=== PATIENT | female | born 1950 | race American Indian/Alaskan Native ===

== ENCOUNTER 2017-09-24 10:10 | Emergency (ER) | payer MEDICARE ==
[2017-09-24 14:00] LABS: Basophils % (Auto) 0.9 % (0.0-1.8); Eosinophils % (Auto) 2.4 % (0.0-4.3); Hematocrit 40.7 % (30.3-42.9); Hemoglobin 13.2 gm/dl (10.1-14.3); Mean Corpuscular HGB Conc 33 % (30-34); Mean Corpuscular Hemoglobin 30 pg (28-32); Mean Corpuscular Volume 93 fl (79-97); Platelet Count 274 K/mm3 (140-440); Red Blood Count 4.39 M/mm3 (3.65-5.03); Red Cell Distribution Width 14.1 % (13.2-15.2); White Blood Count 7.4 K/mm3 (4.5-11.0)
[2017-09-24 14:03] LABS: Alanine Aminotransferase 11 units/L (7-56); Albumin 3.7 g/dL (3.9-5); Albumin/Globulin Ratio 0.9 %; Alkaline Phosphatase 80 units/L (35-129); Anion Gap 18 mmol/L; BUN/Creatinine Ratio 32; Blood Urea Nitrogen 19 mg/dL (7-17); Calcium 9.8 mg/dL (8.4-10.2); Carbon Dioxide 26 mmol/L (22-30); Chloride 98.3 mmol/L (98-107); Glucose 78 mg/dL (65-100); Potassium 4.4 mmol/L (3.6-5.0); Sodium 138 mmol/L (137-145); Total Protein 7.7 g/dL (6.3-8.2)
[2017-09-24] MEDS ORDERED: ZOFRAN IV ONE (17:00)
[2017-09-24] MEDS ORDERED: DILAUDID IV ONE (17:00)
--- NOTE | 2017-09-24 17:06 | Emergency Department Report ---
ED General Adult HPI - General Chief complaint: Pain General Stated complaint: NECK/RT KNEE PAIN Time Seen by Provider: 09/24/17 16:52 Source: patient Mode of arrival: Wheelchair Limitations: No Limitations - History of Present Illness Initial comments: Patient is a 66 years old female living in a halfway brought by EMS today with a chief complaint of CV or neck pain however and lower back pain and right knee pain has been going on for 3 weeks, patient stated that her pain is intolerable today. She stated that she was diagnosed with degenerative disc disease but the pain is severe today. Patient denied any numbness or tingling sensation, no bowel or bladder incontinence, no focal weakness. Patient denied headache or fever. Location: neck, back, lower extremity Quality: stabbing, sharp Consistency: constant - Related Data Previous Rx's Medication Instructions Recorded Last Taken Type HYDROcodone/APAP 5-325 [[place] 1 each PO Q6HR PRN #14 tablet 09/24/17 Unknown Rx 5/325] Ondansetron [Zofran Odt] 4 mg PO Q8HR PRN #14 tab.rapdis 09/24/17 Unknown Rx Allergies Allergy/AdvReac Type Severity Reaction Status Date / Time No Known Allergies Allergy Unverified 09/24/17 10:42 ED Review of Systems ROS: Stated complaint: NECK/RT KNEE PAIN Other details as noted in HPI Comment: All other systems reviewed and negative Constitutional: denies: chills, fever ENT: denies: ear pain, throat pain, dental pain, hearing loss Respiratory: denies: cough, orthopnea, shortness of breath, SOB with exertion, SOB at rest Cardiovascular: denies: chest pain, palpitations Gastrointestinal: denies: abdominal pain, nausea, vomiting, diarrhea, constipation Musculoskeletal: back pain, joint swelling. denies: arthralgia Skin: denies: rash, lesions Neurological: denies: headache, weakness, numbness, paresthesias ED Past Medical Hx - Past Medical History Previous Medical History?: Yes Hx Diabetes: Yes Hx of Cancer: Yes Hx Arthritis: Yes Hx Asthma: Yes - Surgical History Past Surgical History?: No - Social History Smoking Status: Never Smoker Substance Use Type: None - Medications Home Medications: Home Medications Medication Instructions Recorded Confirmed Last Taken Type HYDROcodone/APAP 5-325 [[place] 1 each PO Q6HR PRN #14 tablet 09/24/17 Unknown Rx 5/325] Ondansetron [Zofran Odt] 4 mg PO Q8HR PRN #14 tab.rapdis 09/24/17 Unknown Rx ED Physical Exam - General Limitations: No Limitations General appearance: alert, in no apparent distress - Head Head exam: Present: atraumatic, normocephalic - Eye Eye exam: Present: PERRL. Absent: normal appearance - ENT ENT exam: Present: normal exam, normal orophraynx, mucous membranes moist - Neck Neck exam: Present: normal inspection, tenderness. Absent: meningismus, full ROM (decreased range of motion), lymphadenopathy, thyromegaly - Respiratory Respiratory exam: Present: normal lung sounds bilaterally. Absent: respiratory distress, wheezes, rales, rhonchi, chest wall tenderness, accessory muscle use, decreased breath sounds, prolonged expiratory - Cardiovascular Cardiovascular Exam: Present: regular rate, normal rhythm, normal heart sounds - GI/Abdominal GI/Abdominal exam: Present: soft, normal bowel sounds. Absent: distended, tenderness, guarding, rebound, rigid, organomegaly, mass, bruit, pulsatile mass , hernia - Expanded Lower Extremity Exam Right Knee exam: Present: tenderness, swelling. Absent: abrasion, laceration, ecchymosis, deformity, crepidus, dislocation - Back Exam Back exam: Present: normal inspection, tenderness, paraspinal tenderness. Absent: muscle spasm - Neurological Exam Neurological exam: Present: alert, oriented X3, CN II-XII intact - Skin Skin exam: Present: warm, intact, normal color ED Course Vital Signs 09/24/17 09/24/17 09/24/17 10:38 17:20 17:31 Temperature 98 F Pulse Rate 91 H 82 86 Respiratory 22 16 19 Rate Blood Pressure 126/66 79/56 Blood Pressure [Left] O2 Sat by Pulse 100 94 98 Oximetry 09/24/17 09/24/17 09/24/17 17:40 17:42 18:45 Temperature 98.3 F Pulse Rate 90 67 Respiratory 12 12 17 Rate Blood Pressure 139/60 Blood Pressure 139/60 [Left] O2 Sat by Pulse 98 94 96 Oximetry 09/24/17 09/24/17 09/24/17 19:00 19:15 19:30 Temperature Pulse Rate 77 76 71 Respiratory 12 15 16 Rate Blood Pressure 119/63 119/63 124/61 Blood Pressure [Left] O2 Sat by Pulse 98 97 99 Oximetry 09/24/17 09/24/17 09/24/17 19:33 19:45 20:00 Temperature Pulse Rate 78 72 74 Respiratory 19 16 14 Rate Blood Pressure 124/61 110/74 Blood Pressure 119/63 [Left] O2 Sat by Pulse 99 100 98 Oximetry 09/24/17 09/24/17 09/24/17 20:15 20:30 20:45 Temperature Pulse Rate 74 68 65 Respiratory 17 14 20 Rate Blood Pressure 110/74 98/51 104/53 Blood Pressure [Left] O2 Sat by Pulse 99 100 100 Oximetry 09/24/17 09/24/17 09/24/17 21:00 21:15 21:30 Temperature Pulse Rate 72 68 65 Respiratory 19 23 16 Rate Blood Pressure 110/51 107/56 109/57 Blood Pressure [Left] O2 Sat by Pulse 95 96 97 Oximetry 09/24/17 09/24/17 09/24/17 21:45 22:00 22:15 Temperature Pulse Rate 64 63 65 Respiratory 16 20 18 Rate Blood Pressure 96/46 105/52 104/52 Blood Pressure [Left] O2 Sat by Pulse 97 96 95 Oximetry - Reevaluation(s) Reevaluation #1: 09/24/17 20:41 Patient stated that she is feeling much better. ED Medical Decision Making - Lab Data Result diagrams: 09/24/17 13:24 09/24/17 13:24 - Radiology Data Radiology results: report reviewed CT cervical spine, CT lumbar spine, CT thoracic spine showed degenerative disc disease but no acute finding. Right knee x-ray no acute findings. Critical care attestation.: If time is entered above; I have spent that time in minutes in the direct care of this critically ill patient, excluding procedure time. ED Disposition Clinical Impression: Neck pain, Back pain, Right knee pain Disposition: - TO HOME OR SELFCARE Is pt being admited?: No Condition: Stable Instructions: Osteoarthritis (ED) Prescriptions: HYDROcodone/APAP 5-325 [[place] 5/325] 1 each PO Q6HR PRN #14 tablet PRN Reason: Pain Ondansetron [Zofran Odt] 4 mg PO Q8HR PRN #14 tab.rapdis PRN Reason: Nausea And Vomiting Referrals: PRIMARY CARE, [Primary Care Provider] - 3-5 Days
--- NOTE | 2017-09-24 19:24 | Cat Scan Report ---
FINAL REPORT EXAM: CT CERVICAL SPINE WO CON HISTORY: NECK INJURY TECHNIQUE: Standard CT cervical spine obtained at 1.25 millimeter axial increments. Coronal and sagittal reconstruction was also performed. PRIORS: None. FINDINGS: The vertebral bodies are intact. There is no evidence for acute fracture. There is no evidence for paravertebral soft tissue swelling. Alignment is maintained. Severe degenerative disc changes are present throughout the entire cervical spine. Large osteophytes, some of which are bridging, are present anteriorly from C2 through C7. Small spurs present posteriorly causing neural foraminal narrowing bilaterally at all levels. IMPRESSION: No acute abnormality of the cervical spine. Severe degenerative disc changes throughout the cervical spine.
--- NOTE | 2017-09-24 19:29 | Cat Scan Report ---
FINAL REPORT EXAM: CT LUMBAR SPINE WO CON HISTORY: back pain TECHNIQUE: Spiral high-resolution unenhanced 1.25 millimeter axial images were obtained through the lumbar spine. Sagittal and coronal plane are reconstructions were performed. PRIORS: None. FINDINGS: Counting reference: Lumbosacral junction. For the purposes of this report, L4-L5 is considered the level of the iliac crest. Bone marrow/ Fracture: No evidence for acute or chronic fracture is seen. No evidence of a lytic or blastic process in the visualized spine. Alignment: Alignment is anatomic. Disc spaces: Severe disc space narrowing at T12-L1 and L5-S1 is noted. Severe hypertrophic facet joint degenerative changes from L2 through S1 are noted bilaterally. There is bilateral neural foraminal narrowing at L4-L5 and L5-S1, worse to the left of midline than the right. Paraspinal soft tissues: The paraspinal soft tissues show no evidence for paravertebral hematoma or soft tissue mass. Sacrum and iliac wings: Visualized portions of the sacrum and iliac wings appear intact without fracture. The presacral soft tissues are normal in appearance. IMPRESSION: 1. No evidence of acute fracture. 2. Extensive degenerative changes particularly at T12-L1 and L5-S1. Significant neural foraminal narrowing is present at L4-L5 and L5-S1.
--- NOTE | 2017-09-24 19:31 | XRay Report ---
FINAL REPORT PROCEDURE: XR KNEE 3V RT TECHNIQUE: Three views of the right knee are obtained HISTORY: right knee pain COMPARISON: No prior studies are available for comparison. FINDINGS: Moderate medial compartmental narrowing is seen with moderate medial lateral osteophytes. Little joint effusion is seen. Old healed fracture of the proximal fibula is suspected. No acute fracture or dislocation is seen. IMPRESSION: Prominent osteoarthritic changes are seen with minimal joint effusion.
--- NOTE | 2017-09-24 19:33 | Cat Scan Report ---
FINAL REPORT EXAM: CT THORACIC SPINE WO CON HISTORY: back pain TECHNIQUE: Standard CT thoracic spine obtained at 1.25 millimeter axial increments. Coronal and sagittal reconstruction was also performed. PRIORS: None. FINDINGS: The vertebral bodies are intact. There is no evidence for acute fracture. There is no evidence for paravertebral soft tissue swelling. Alignment is maintained. Severe degenerative disc narrowing is present at all levels of the thoracic spine. Large osteophytes are present throughout the lower 2/3 of the thoracic spine anteriorly. Incidental gallstones in the gallbladder are noted. IMPRESSION: No acute abnormality of the thoracic spine. Severe degenerative disc changes throughout the thoracic spine with large osteophytes anteriorly.
[2017-09-24 22:51] VITALS: BP 104/52
== END 2017-09-24 23:40 | disposition home or self-care (01) ==
LOC: ED 10:10
DX: M54.2 Cervicalgia (principal); M25.561 Pain in right knee; M54.5 Low back pain; E11.9 Type 2 diabetes mellitus without complications; M19.90 Unspecified osteoarthritis, unspecified site; J45.909 Unspecified asthma, uncomplicated
CPT/HCPCS: 36415; 72125; 72128; 72131; 80053; 85025; 96374; 96375

== ENCOUNTER 2017-10-19 12:35 | Emergency (ER) | payer MEDICARE ==
[2017-10-19 23:15] LABS: Bacteria,Urine 1+ /HPF (Negative); Bilirubin,Urine NEG (Negative); Blood,Urine SM (Negative); Ketones,Urine TR mg/dL (Negative); Leukocyte Esterase,Urine NEG (Negative); Mucus,Urine FEW /HPF; Nitrite,Urine NEG (Negative); Protein,Urine <15 mg/dL mg/dL (Negative)
[2017-10-20] MEDS ORDERED: MORPHINE IM ONE (00:40)
[2017-10-20] MEDS ORDERED: ZOFRAN IM ONE (00:40)
--- NOTE | 2017-10-20 00:40 | Emergency Department Report ---
ED General Adult HPI - General Chief complaint: Extremity Injury, Lower Stated complaint: FREQUENT URINATING,HIP PAIN Time Seen by Provider: 10/20/17 00:22 Source: patient Mode of arrival: Ambulatory Limitations: No Limitations - History of Present Illness Initial comments: Patient is 67 years old female came in today with a chief complaint of urinary incontinence has been going on for a while, she stated that she cannot hold her urine and she is having trouble at the place that she live in now. Patient denied any fever no recent injury and no nausea no vomiting. Patient also complaining of generalized joint pain, she was diagnosed as arthritis and she supposed to follow-up with an orthopedic doctor that she did not make an appointment yet. No other complaint. Severity scale (0 -10): 10 - Related Data Previous Rx's Medication Instructions Recorded Last Taken Type HYDROcodone/APAP 5-325 [[place] 1 each PO Q6HR PRN #14 tablet 09/24/17 Unknown Rx 5/325] Ondansetron [Zofran Odt] 4 mg PO Q8HR PRN #14 tab.rapdis 09/24/17 Unknown Rx HYDROcodone/APAP 5-325 [[place] 1 each PO Q6HR PRN #14 tablet 10/20/17 Unknown Rx 5/325] Ondansetron [Zofran Odt] 4 mg PO Q8HR PRN #14 tab.rapdis 10/20/17 Unknown Rx Allergies Allergy/AdvReac Type Severity Reaction Status Date / Time No Known Allergies Allergy Verified 10/19/17 12:41 ED Review of Systems ROS: Stated complaint: FREQUENT URINATING,HIP PAIN Other details as noted in HPI Comment: All other systems reviewed and negative Constitutional: denies: chills, fever Respiratory: denies: cough, orthopnea, shortness of breath Cardiovascular: denies: chest pain, palpitations Gastrointestinal: denies: abdominal pain, nausea, vomiting, diarrhea, constipation Genitourinary: urgency, frequency. denies: dysuria, hematuria, discharge Musculoskeletal: denies: back pain, arthralgia ED Past Medical Hx - Past Medical History Hx Hypertension: Yes - Social History Smoking Status: Current Every Day Smoker Substance Use Type: None - Medications Home Medications: Home Medications Medication Instructions Recorded Confirmed Last Taken Type HYDROcodone/APAP 5-325 [[place] 1 each PO Q6HR PRN #14 tablet 09/24/17 Unknown Rx 5/325] Ondansetron [Zofran Odt] 4 mg PO Q8HR PRN #14 tab.rapdis 09/24/17 Unknown Rx HYDROcodone/APAP 5-325 [[place] 1 each PO Q6HR PRN #14 tablet 10/20/17 Unknown Rx 5/325] Ondansetron [Zofran Odt] 4 mg PO Q8HR PRN #14 tab.rapdis 10/20/17 Unknown Rx ED Physical Exam - General Limitations: No Limitations General appearance: alert, in no apparent distress - Head Head exam: Present: atraumatic, normocephalic, normal inspection - Eye Eye exam: Present: normal appearance - ENT ENT exam: Present: normal exam - Neck Neck exam: Present: normal inspection - Respiratory Respiratory exam: Present: normal lung sounds bilaterally - Cardiovascular Cardiovascular Exam: Present: regular rate - GI/Abdominal GI/Abdominal exam: Present: soft, normal bowel sounds. Absent: distended, tenderness, guarding, rebound, rigid, organomegaly, mass, bruit, pulsatile mass - Extremities Exam Extremities exam: Present: normal inspection, full ROM, normal capillary refill - Back Exam Back exam: Present: normal inspection. Absent: CVA tenderness (R), CVA tenderness (L) - Neurological Exam Neurological exam: Present: alert, oriented X3, CN II-XII intact, normal gait - Skin Skin exam: Present: warm, intact, normal color ED Course Vital Signs 10/19/17 10/19/17 10/19/17 12:42 20:53 22:00 Temperature 98.3 F 98.5 F 98.3 F Pulse Rate 102 H 87 76 Respiratory 18 18 18 Rate Blood Pressure 123/72 Blood Pressure 119/58 134/67 [Right] O2 Sat by Pulse 96 96 97 Oximetry 10/19/17 10/19/17 10/19/17 22:02 22:31 23:01 Temperature Pulse Rate Respiratory Rate Blood Pressure 134/67 134/67 Blood Pressure [Right] O2 Sat by Pulse 99 98 96 Oximetry 10/19/17 10/20/17 10/20/17 23:31 00:01 00:25 Temperature Pulse Rate Respiratory 16 Rate Blood Pressure 134/67 134/67 Blood Pressure [Right] O2 Sat by Pulse 95 94 97 Oximetry 10/20/17 00:31 Temperature Pulse Rate Respiratory Rate Blood Pressure 134/67 Blood Pressure [Right] O2 Sat by Pulse 97 Oximetry Critical care attestation.: If time is entered above; I have spent that time in minutes in the direct care of this critically ill patient, excluding procedure time. ED Disposition Clinical Impression: Urinary incontinence, Arthritis Disposition: DC-01 TO HOME OR SELFCARE Is pt being admited?: No Condition: Stable Instructions: Urinary Incontinence (ED), Osteoarthritis (ED), Paz Catheter Placement and Care (ED) Additional Instructions: Please follow up with a urologist for the Paz catheter care and further management. Prescriptions: HYDROcodone/APAP 5-325 [[place] 5/325] 1 each PO Q6HR PRN #14 tablet PRN Reason: Pain Ondansetron [Zofran Odt] 4 mg PO Q8HR PRN #14 tab.rapdis PRN Reason: Nausea And Vomiting Referrals: PRIMARY CARE, [Primary Care Provider] - 3-5 Days
[2017-10-20 09:01] VITALS: BP 106/57
== END 2017-10-20 10:46 | disposition home or self-care (01) ==
LOC: ED 12:35
DX: R32 Unspecified urinary incontinence (principal); M19.90 Unspecified osteoarthritis, unspecified site; F17.200 Nicotine dependence, unspecified, uncomplicated; I10 Essential (primary) hypertension
CPT/HCPCS: 51702; 81001; 96372; 99284; J2270; J2405

== ENCOUNTER 2017-10-30 20:03 | Emergency (ER) | payer MEDICARE ==
[2017-10-30 20:55] LABS: Eosinophils % (Auto) 6.2 % (0.0-4.3); Hematocrit 41.4 % (30.3-42.9); Hemoglobin 14.1 gm/dl (10.1-14.3); Mean Corpuscular HGB Conc 34 % (30-34); Mean Corpuscular Hemoglobin 31 pg (28-32); Mean Corpuscular Volume 91 fl (79-97); Platelet Count 331 K/mm3 (140-440); Red Blood Count 4.58 M/mm3 (3.65-5.03); Red Cell Distribution Width 13.4 % (13.2-15.2); White Blood Count 8.1 K/mm3 (4.5-11.0)
[2017-10-30 21:12] LABS: Alanine Aminotransferase 7 units/L (7-56); Albumin 3.9 g/dL (3.9-5); Albumin/Globulin Ratio 1.1 %; Alkaline Phosphatase 80 units/L (35-129); Anion Gap 20 mmol/L; BUN/Creatinine Ratio 30; Blood Urea Nitrogen 18 mg/dL (7-17); Carbon Dioxide 24 mmol/L (22-30); Chloride 99.1 mmol/L (98-107); Glucose 134 mg/dL (65-100); Lipase 13 units/L (13-60); Sodium 139 mmol/L (137-145); Total Protein 7.6 g/dL (6.3-8.2)
--- NOTE | 2017-10-30 21:57 | Emergency Department Report ---
ED General Adult HPI - General Chief complaint: Abdominal Pain Stated complaint: ABDOMINAL PAIN Time Seen by Provider: 10/30/17 21:45 Source: patient, EMS Mode of arrival: Wheelchair Limitations: Physical Limitation - History of Present Illness Initial comments: This is a 67-year-old female lives in a shelter was seen recently in the ED in September where she was felt to have urinary incontinence of unclear etiology they did place a Paz and instructed her to see urology she has not yet followed up with them. she also has chronic joint pain has been taking Percocet and Zofran Paz has been in since September 24 she is out of her pain pills, she is here with several complaints: she feels that she is getting constipated she also feels like she is having lower abdominal pain she's not sure if it's related to the Paz and today she started having chest pain .she denied fever she denied cough she denies exertional chest pain she denied sudden onset of tearing pain, she denies any nausea vomiting diarrhea she does have chronic pain from her back and jts from degenerative disease -: Gradual Location: chest, back, abdomen Radiation: non-radiation Quality: burning Consistency: intermittent - Related Data Previous Rx's Medication Instructions Recorded Last Taken Type HYDROcodone/APAP 5-325 [[place] 1 each PO Q6HR PRN #14 tablet 09/24/17 Unknown Rx 5/325] Ondansetron [Zofran Odt] 4 mg PO Q8HR PRN #14 tab.rapdis 09/24/17 Unknown Rx HYDROcodone/APAP 5-325 [[place] 1 each PO Q6HR PRN #14 tablet 10/20/17 Unknown Rx 5/325] Ondansetron [Zofran Odt] 4 mg PO Q8HR PRN #14 tab.rapdis 10/20/17 Unknown Rx Allergies Allergy/AdvReac Type Severity Reaction Status Date / Time No Known Allergies Allergy Verified 10/19/17 12:41 ED Review of Systems ROS: Stated complaint: ABDOMINAL PAIN Other details as noted in HPI Comment: All other systems reviewed and negative Constitutional: denies: diaphoresis, fever, malaise, weakness Respiratory: denies: cough, orthopnea, shortness of breath, SOB with exertion, SOB at rest, stridor, wheezing Cardiovascular: chest pain, dyspnea on exertion, orthopnea, other (patient thinks her chest pain is from her abdomen that is radiating into her chest noticed exertional chest pain she's had a chest pain off and on for several days ). denies: palpitations, edema, syncope, paroxysmal nocturnal dyspnea Gastrointestinal: abdominal pain, constipation, other (she thinks her abdominal pain is from the Paz catheter she has pain over her bladder). denies: nausea , vomiting, diarrhea, hematemesis, melena, hematochezia Musculoskeletal: denies: joint swelling, arthralgia Neurological: denies: headache, weakness, numbness, paresthesias, confusion, vertigo Psychiatric: denies: depression, auditory hallucinations, visual hallucinations , homicidal thoughts Hematological/Lymphatic: denies: easy bruising ED Past Medical Hx - Past Medical History Previous Medical History?: Yes Hx Hypertension: Yes Hx CVA: Yes (left side deficits 2007) Hx Diabetes: Yes Additional medical history: States she has a hole in her heart - Surgical History Past Surgical History?: Yes Additional Surgical History: Tonsil and Adnoids removed, Total Hysterectomy - Social History Smoking Status: Current Every Day Smoker - Medications Home Medications: Home Medications Medication Instructions Recorded Confirmed Last Taken Type HYDROcodone/APAP 5-325 [[place] 1 each PO Q6HR PRN #14 tablet 09/24/17 Unknown Rx 5/325] Ondansetron [Zofran Odt] 4 mg PO Q8HR PRN #14 tab.rapdis 09/24/17 Unknown Rx HYDROcodone/APAP 5-325 [[place] 1 each PO Q6HR PRN #14 tablet 10/20/17 Unknown Rx 5/325] Ondansetron [Zofran Odt] 4 mg PO Q8HR PRN #14 tab.rapdis 10/20/17 Unknown Rx ED Physical Exam - General Limitations: Physical Limitation General appearance: alert, in no apparent distress - Head Head exam: Present: atraumatic, normocephalic - Eye Eye exam: Present: normal appearance, PERRL, EOMI - ENT ENT exam: Present: normal exam - Neck Neck exam: Present: normal inspection. Absent: tenderness, meningismus - Respiratory Respiratory exam: Present: normal lung sounds bilaterally, other (question of reproducible chest wall pain). Absent: respiratory distress, wheezes, rales, rhonchi, stridor, accessory muscle use, decreased breath sounds, prolonged expiratory - Cardiovascular Cardiovascular Exam: Present: regular rate, normal rhythm, normal heart sounds. Absent: irregular rhythm, systolic murmur, diastolic murmur, rubs, gallop - GI/Abdominal GI/Abdominal exam: Present: soft. Absent: distended, guarding, rebound, mass, bruit, pulsatile mass - Extremities Exam Extremities exam: Present: normal inspection. Absent: tenderness, pedal edema - Back Exam Back exam: Present: normal inspection. Absent: CVA tenderness (L), vertebral tenderness - Neurological Exam Neurological exam: Present: alert, oriented X3, CN II-XII intact. Absent: motor sensory deficit ED Course Vital Signs 10/30/17 10/30/17 10/31/17 20:20 23:00 00:17 Temperature 98.6 F Pulse Rate 91 H Respiratory 20 20 16 Rate Blood Pressure 129/69 O2 Sat by Pulse 98 Oximetry ED Medical Decision Making - Lab Data Result diagrams: 10/30/17 20:35 10/30/17 20:39 - EKG Data -: EKG Interpreted by Me EKG shows normal: sinus rhythm - EKG Data When compared to previous EKG there are: previous EKG unavailable Interpretation: nonspecific ST-T wave zaida, other (no acute ischemic change) - Radiology Data Radiology results: report reviewed Chest x-ray negative by the radiologist, CT abdomen and pelvis without contrast shows the following; gallstones but no cholecystitis local evidence cystitis Paz in place, remainder of abdominal pelvis CT unremarkable - Medical Decision Making Laboratory studies returned showing UTI remaining laboratory studies were unremarkable. CT was previously read as likely cystitis patient be discharged with antibiotics here regular doctor she has no surgical abdomen at this time. She has stable vital signs and is stable for outpatient follow-up Critical care attestation.: If time is entered above; I have spent that time in minutes in the direct care of this critically ill patient, excluding procedure time. ED Disposition Clinical Impression: Urinary tract infection Disposition: - TO HOME OR SELFCARE Is pt being admited?: No Condition: Stable Instructions: Abdominal Pain (ED), Urinary Tract Infection in Women (ED) Additional Instructions: Return if new or alarming symptoms see her doctor in 2 days Referrals: KAT CRAWFORD MD [Primary Care Provider] - 3-5 Days Time of Disposition: 02:54
[2017-10-30] MEDS ORDERED: TYLENOL PO ONE (22:00)
--- NOTE | 2017-10-30 22:19 | XRay Report ---
FINAL REPORT EXAM: XR CHEST ROUTINE 2V HISTORY: cp COMPARISON: None available. FINDINGS:: Frontal and lateral views of the chest obtained. Cardiac silhouette is within normal limits. Tiny calcified granuloma left upper lung. No focal consolidation or effusion. No pneumothorax. Visualized bony thorax is grossly intact. IMPRESSION:: No acute findings.
--- NOTE | 2017-10-30 22:35 | Cat Scan Report ---
FINAL REPORT EXAM: CT ABDOMEN PELVIS WO CON HISTORY: pain COMPARISON: None available. TECHNIQUE: Contiguous axial images were obtained. Additional sagittal and coronal reformatted images were obtained. FINDINGS: Mild linear atelectasis or scarring at the lung bases. Cholelithiasis. No gross inflammatory changes the gallbladder by CT. No adjacent fat stranding. Liver, spleen, pancreas are grossly unremarkable. No adrenal mass. No nephrolithiasis or hydronephrosis. Aorta and IVC normal in caliber. Paz catheter decompresses the urinary bladder. There is wall thickening and fat stranding at the margin the urinary bladder. Uterus is surgically absent. Several pelvic phleboliths. No definite ureteral urinary bladder calculi. No free fluid in lymphadenopathy in the abdomen and pelvis. Large and small bowel loops normal in caliber. The appendix is gas-filled and normal in caliber. No inflammatory changes the bowel. Mild to moderate degenerative changes of the lumbar spine. Bony pelvis is grossly intact. IMPRESSION: Wall thickening and fat stranding at the margin the urinary bladder concerning for cystitis. Some wall thickening is accentuated by decompressed state of the urinary bladder by Paz catheter. No obstructive uropathy urolithiasis. Cholelithiasis. No gross inflammatory changes the gallbladder by CT. If the patient has right upper quadrant pain, abdominal ultrasound or nuclear medicine HIDA scan may be of benefit for further evaluation. No other gross acute findings.
[2017-10-31 00:15] LABS: Bacteria,Urine 4+ /HPF (Negative); Bilirubin,Urine NEG (Negative); Blood,Urine MOD (Negative); Ketones,Urine TR mg/dL (Negative); Leukocyte Esterase,Urine LG (Negative); Mucus,Urine FEW /HPF; Nitrite,Urine NEG (Negative)
[2017-10-31 00:16] LABS: RBC,Urine > 182.0 /HPF (0.0-6.0); WBC,Urine > 182.0 /HPF (0.0-6.0)
[2017-10-31 03:11] VITALS: BP 112/62
== END 2017-10-31 03:12 | disposition home or self-care (01) ==
LOC: ED 20:03
DX: N39.0 Urinary tract infection, site not specified (principal); I10 Essential (primary) hypertension; E11.9 Type 2 diabetes mellitus without complications; F17.200 Nicotine dependence, unspecified, uncomplicated; Z86.73 Personal history of transient ischemic attack (TIA), and cerebral infarction without residual deficits; Z90.710 Acquired absence of both cervix and uterus
CPT/HCPCS: 36415; 71020; 74176; 80053; 81001; 83690; 84484; 85025; 87086; 87186; 93005; 93010

== ENCOUNTER 2020-11-04 10:53 | Emergency (ER) | payer MEDICARE ==
[~2020-11-04 10:53] MED LIST: EPINEPHrine 1 MG/10 ML SYRINGE ONE; SODIUM BICARB 8.4% 50 MEQ/50 ML SYRINGE IV ONE
--- NOTE | 2020-11-04 11:34 | Emergency Department Report ---
ED CPR HPI - General Chief Complaint: Cardiac Arrest/CPR Stated Complaint: RESPIRATORY DISTRESS Time Seen by Provider: 11/04/20 11:29 - History of Present Illness Initial Comments: This is a 70-year old female who was in residence at [place]. She was found to have an altered level of consciousness and EMS was activated. EMS arrived at approximately 1020 to find the patient with agonal respirations. The patient was ventilated with an Ambu bag. An IO was placed. A line was placed in the left arm as well. The patient bradyed down per the medics and transdermal pacing was initiated. They stated that this was effective and pulses were appreciated. Medics reported dilated pupils on their arrival. Patient arrived in the emergency department without spontaneous respirations. As the the patient was apneic, immediate crash intubation without medication was performed, single attempt without difficulty. CPR was initiated as pulses were undetectable. Upon intubation the end-tidal CO2 was bright yellow. However it was noted that the color was deteriorating. I believe this was associated with the patient's low perfusion state. The patient was given IV fluids, epinephrine times several as well as bicarb. There was a return of spontaneous circulation. Peripheral pulses were not not appreciated or Doppler signal found. However, heart sounds were appreciated with a tachycardic rate. That being the case, further resuscitative efforts continued. I placed a triple-lumen right internal jugular central line. Patient was given additional medication and fluids. Not withstanding, the patient had no further return of spontaneous circulation. The pacer was failing to capture. Ultimately the patient was pronounced in PEA. MD Complaint: found unresponsive Place: other ([facility]) Bystander CPR Performed: No (I do not think so) Initial Findings in the Field: unresponsive ROSC in the Field: Yes (With pacing) Associated Symptoms: other (No symptoms reported) Treatments Prior to Arrival: other - Related Data Previous Rx's Medication Instructions Recorded Last Taken Type HYDROcodone/APAP 5-325 [[place] 1 each PO Q6HR PRN #14 tablet 09/24/17 Unknown Rx 5/325] Ondansetron [Zofran Odt] 4 mg PO Q8HR PRN #14 tab.rapdis 09/24/17 Unknown Rx HYDROcodone/APAP 5-325 [[place] 1 each PO Q6HR PRN #14 tablet 10/20/17 Unknown Rx 5/325] Ondansetron [Zofran Odt] 4 mg PO Q8HR PRN #14 tab.rapdis 10/20/17 Unknown Rx cephALEXin [Keflex] 500 mg PO Q6HR #14 capsule 10/31/17 Unknown Rx Allergies Allergy/AdvReac Type Severity Reaction Status Date / Time No Known Allergies Allergy Verified 10/19/17 12:41 ED Review of Systems ROS: Stated complaint: RESPIRATORY DISTRESS Other details as noted in HPI Comment: Unobtainable due to pts medical conditions ED Past Medical Hx - Past Medical History Hx Hypertension: Yes Hx CVA: Yes (left side deficits 2007) Hx Diabetes: Yes Additional medical history: States she has a hole in her heart - Surgical History Additional Surgical History: Tonsil and Adnoids removed, Total Hysterectomy - Social History Smoking Status: Current Every Day Smoker - Medications Home Medications: Home Medications Medication Instructions Recorded Confirmed Last Taken Type HYDROcodone/APAP 5-325 [[place] 1 each PO Q6HR PRN #14 tablet 09/24/17 Unknown Rx 5/325] Ondansetron [Zofran Odt] 4 mg PO Q8HR PRN #14 tab.rapdis 09/24/17 Unknown Rx HYDROcodone/APAP 5-325 [[place] 1 each PO Q6HR PRN #14 tablet 10/20/17 Unknown Rx 5/325] Ondansetron [Zofran Odt] 4 mg PO Q8HR PRN #14 tab.rapdis 10/20/17 Unknown Rx cephALEXin [Keflex] 500 mg PO Q6HR #14 capsule 10/31/17 Unknown Rx ED Physical Exam - General Limitations: Physical Limitation General appearance: obese - Head Head exam: Present: atraumatic - Eye Pupils: Present: mydriatic - Neck Neck exam: Present: other (Appears to have jugular venous distention) - Respiratory Respiratory exam: Present: other (After intubation clear breath sounds bila terally) - Cardiovascular Cardiovascular Exam: Present: other (Tachycardic rhythm during resuscitation) - GI/Abdominal GI/Abdominal exam: Absent: distended - Extremities Exam Extremities exam: Present: other (I/O lower tibial) - Back Exam Back exam: Present: other (Unable to inspect) - Neurological Exam Neurological exam: Present: other (GCS 3) ED Course - Reevaluation(s) Reevaluation #1: Resuscitative efforts were unsuccessful. Family will be counseled. 11/04/20 11:50 - Central Line Placement Right IJ Consent Obtained: emergent situation Time Out Performed: No Patient Placed on Monitor/Pulse Ox: Yes Prep: mask, gown, gloves Central Line Prep: Chlorhexidine scrub Ultrasound Used for Placement: No Central Line Lumen Inserted: triple Central Line Position: good blood return Dressing Applied: Tegaderm Complications: none - Intubation Time Out Performed: No Laryngoscope: Alvarez Size: 4 ET Tube Size: 7.5 Tube Secured Depth (cm): 22 Tube Secured Location: lips Tube Placement Confirmation: visualized tube passing t Patient Tolerated Procedure: no complications Intubation Complications: none Critical care attestation.: If time is entered above; I have spent that time in minutes in the direct care of this critically ill patient, excluding procedure time. ED Disposition Clinical Impression: Cardiac arrest Disposition: DC-20 Is pt being admited?: No Does the pt Need Aspirin: No Condition: Stable Referrals: PRIMARY CARE, [Primary Care Provider] - 3-5 Days Time of Disposition: 11:52
[2020-11-04] MEDS ORDERED: ETOMIDATE 20 MG/10 ML INJ IV ONE ×2 (11:48→11:52)
[2020-11-04] MEDS ORDERED: SODIUM CHLORIDE 0.9% 1000 ML 0 ML ONE (11:48)
[2020-11-04] MEDS ORDERED: SUCCINYLCHOLINE CHLORIDE 200 MG/10 ML INJ MDV ONE (11:48)
[2020-11-04] MEDS ORDERED: SUCCINYLCHOLINE CHLORIDE 200 MG/10 ML INJ MDV IV ONE (11:52)
== END 2020-11-04 12:00 ==
LOC: ED 10:53
DX: I46.9 Cardiac arrest, cause unspecified (principal); I10 Essential (primary) hypertension; E11.9 Type 2 diabetes mellitus without complications; F17.200 Nicotine dependence, unspecified, uncomplicated; Z79.899 Other long term (current) drug therapy
CPT/HCPCS: 31500; 36556; 92950; 99285; J0171; J0330; J7030